=== PATIENT | female | born 1960 | race Caucasian/White ===

== ENCOUNTER 2019-08-18 12:36 | Emergency (ER) | payer BC ==
[2019-08-18 13:40] VITALS: BP 123/72
--- NOTE | 2019-08-18 13:48 | UC ---
Throat Pain/Nasal Lorne HPI - HPI Summary HPI Summary: 58-year-old female who had cold symptoms over a week and a half ago with head congestion and now feels sinus pressure, postnasal drainage and productive cough of yellowish-green sputum. She is a nonsmoker, she did get a flu shot in the fall. - History of Current Complaint Chief Complaint: UCGeneralIllness Stated Complaint: COUGH,CONGESTION,NAUSEA Time Seen by Provider: 08/18/19 13:39 Hx Obtained From: Patient Hx Last Menstrual Period: present (started 09/07/2012 0 ?: No Onset/Duration: Gradual Onset Severity: Mild Pain Intensity: 0 Cough: Productive - Productive cough of yellowish-green sputum. Associated Signs & Symptoms: Positive: Sinus Discomfort, Nasal Discharge - Allergies/Home Medications Allergies/Adverse Reactions: Allergies Allergy/AdvReac Type Severity Reaction Status Date / Time enviromental Allergy Eyes Uncoded 08/18/19 13:34 Itchy/Swollen/Red/Watery Home Medications: Home Medications Levothyroxine Sodium 112 mcg PO DAILY 08/18/19 [History Confirmed 08/18/19] PMH/Surg Hx/FS Hx/Imm Hx Previously Healthy: Yes Other History Of: Negative For: HIV, Hepatitis B, Hepatitis C - Surgical History Surgical History: Yes Surgery Procedure, Year, and Place: left shoulder-rotator cuff 2019, left knee - Family History Known Family History: Positive: None - Social History Occupation: Employed Full-time Lives: With Family Alcohol Use: Occasionally Substance Use Type: None Smoking Status (MU): Never Smoked Tobacco Review of Systems All Other Systems Reviewed And Are Negative: Yes Constitutional: Positive: Fever - Patient has had no recorded fever however she states today she felt sweaty like she might have a fever. ENT: Positive: Nasal Discharge, Sinus Congestion, Sinus Pain/Tenderness Respiratory: Positive: Cough - Productive cough of yellowish-green sputum Is Patient Immunocompromised?: No Physical Exam Triage Information Reviewed: Yes Appearance: Well-Appearing, No Pain Distress, Well-Nourished Vital Signs: Initial Vital Signs Temp 98.2 F 08/18/19 13:35 Pulse 78 08/18/19 13:35 Resp 16 08/18/19 13:35 BP 123/72 08/18/19 13:35 Pulse Ox 99 08/18/19 13:35 Vital Signs Reviewed: Yes Eyes: Positive: Conjunctiva Clear ENT: Positive: Pharynx normal - Yellow postnasal drainage, Nasal congestion - Yellow purulent nasal coryza bilaterally., TMs normal, Sinus tenderness - Tender over the maxillary sinuses bilaterally., Uvula midline Neck: Positive: Supple, Nontender, No Lymphadenopathy Respiratory: Positive: Lungs clear, Normal breath sounds, No respiratory distress, No accessory muscle use Cardiovascular: Positive: RRR, No Murmur, Pulses Normal, Brisk Capillary Refill Musculoskeletal Exam: Normal Neurological Exam: Normal Psychological Exam: Normal Skin Exam: Normal Throat Pain/Nasal Course/Dx - Course Course Of Treatment: Patient is comfortable here and nontoxic does not appear ill. - Differential Dx/Diagnosis Provider Diagnosis: Sinusitis Discharge ED - Sign-Out/Discharge Documenting (check all that apply): Patient Departure All imaging exams completed and their final reports reviewed: No Studies - Discharge Plan Condition: Good Disposition: HOME Prescriptions: DOXYcycline CAP(*) [DOXYcycline 100MG CAP(*)] 100 mg PO BID 10 Days #20 cap Patient Education Materials: Sinusitis (ED) Forms: *Work Release Referrals: Kurt Perla MD [Primary Care Provider] - Additional Instructions: Increase fluids, rest, no dairy products, antacids or multivitamins or vitamin supplements 2 hours prior to taking the doxycycline and 2 hours after however take it with food. Follow-up with your primary care provider early next week if no improvement or if worsening symptoms. - Billing Disposition and Condition Condition: GOOD Disposition: Home - Attestation Statements Provider Attestation: .I was available for consult. This patient was seen by the [facility]. The patient was not presented to, seen by, or examined by me. -Phani
== END 2019-08-18 13:57 | disposition home or self-care (01) ==
LOC: UCCORT 12:36
DX: J32.9 Chronic sinusitis, unspecified (principal); Z91.09 Other allergy status, other than to drugs and biological substances
CPT/HCPCS: 99202; G0463